=== PATIENT | female | born 1975 | race Caucasian/White ===

== ENCOUNTER → 2017-08-21 | Outpatient (CLI) | payer SELFPAY ==
--- NOTE | 2017-08-21 15:19 | Diagnostic Imaging Report ---
PROCEDURE: CT urinary tract, rule out kidney stone. TECHNIQUE: Multiple contiguous axial images were obtained through the abdomen and pelvis without the use of intravenous contrast. INDICATION: Right flank pain x2 weeks. Hematuria. History of kidney stones. COMPARISON: None. FINDINGS: Included portions of the lung bases are clear. CT ABDOMEN: No renal or ureteral calculi seen on either side. Additionally, there is no hydroureteronephrosis or other evidence of obstruction. There is 1.5 cm rounded hypodensity within the posterior lateral parenchyma of the mid region of the left kidney, which is incompletely characterized, but could conceivably be on the basis of hypodense cysts. The adrenal glands, spleen, pancreas, and liver have an unremarkable noncontrast CT appearance. Small bowel loops are nondistended. Normal appendix is identified. There is no loculated fluid collection, free fluid, free air within the abdomen. No abnormal adenopathy is seen. Bony structures show no acute abnormalities. CT PELVIS: Urinary bladder is unopacified. No calculi are seen within a bladder. There is no loculated fluid collection, free fluid, or free air within the pelvis. No abnormal lymph nodes are seen. Bony structures show no acute abnormalities. IMPRESSION: 1. No renal or ureteral calculi, hydroureteronephrosis, or other evidence of obstruction on either side. 2. Probable hypodense left renal cyst. 3. No other acute abnormalities are seen within the abdomen or pelvis. Dictated by: Dictated on workstation # [id number]
== END ==
LOC: RAD 14:50
PROVIDERS: ATTEND Nurse Practitioner Family
DX: R31.9 Hematuria, unspecified (principal); Z87.442 Personal history of urinary calculi
CPT/HCPCS: 74176

== ENCOUNTER → 2018-05-19 | Outpatient (CLI) | payer OTHER ==
--- NOTE | 2018-05-19 20:03 | Diagnostic Imaging Report ---
INDICATION: Bilateral breast pain. Correlation is made with prior mammogram from 12/24/2015. 2-D and 3-D bilateral diagnostic mammography was performed with a Computer Aided Detection (CAD) system. FINDINGS: Scattered fibroglandular densities are identified bilaterally. The parenchymal pattern is stable. No mass or malignant appearing microcalcifications are seen. Axillae are unremarkable. IMPRESSION: No mammographic features suspicious for malignancy are identified. Even so, sonographic interrogation of the areas of pain in bilateral breasts is recommended and will be performed today. ACR BI-RADS Category 0: Incomplete. (Needs additional imaging evaluation). Result letter will be mailed to the patient. Note: At least 10% of breast cancer is not imaged by mammography. Dictated by: Dictated on workstation # [id number]
--- NOTE | 2018-05-19 20:47 | Diagnostic Imaging Report ---
INDICATION: Bilateral breast pain. EXAMINATION: Sonographic interrogation of the areas of pain in bilateral breasts was performed. FINDINGS: Exam included the upper and lower inner outer quadrants of both breasts as well as the retroareolar regions. No sonographic abnormality is seen. No solid or cystic mass is detected. IMPRESSION: No sonographic abnormality is identified. Clinical followup is recommended. ACR BI-RADS Category 1: Negative. Result letter will be mailed to the patient. Note: At least 10% of breast cancer is not imaged by mammography. Dictated by: Dictated on workstation # [id number]
== END ==
LOC: RAD 12:53
PROVIDERS: ATTEND Nurse Practitioner Family
DX: N64.4 Mastodynia (principal)
CPT/HCPCS: 77066

== ENCOUNTER → 2018-05-19 | Outpatient (CLI) | payer OTHER ==
--- NOTE | 2018-05-19 14:49 | Diagnostic Imaging Report ---
PROCEDURE: US Abdomen, limited. TECHNIQUE: Multiple realtime grayscale images were obtained over the abdomen in various projections. INDICATION: Evaluate for umbilical hernia. FINDINGS: Sonographic interrogation in the periumbilical region was performed. No definite abdominal wall defect or hernia is identified. IMPRESSION: No sonographic abnormality is detected. Dictated by: Dictated on workstation # [id number]
== END ==
LOC: RAD 12:58
PROVIDERS: ATTEND Nurse Practitioner Family
DX: K42.9 Umbilical hernia without obstruction or gangrene (principal)
CPT/HCPCS: 76705

== ENCOUNTER → 2018-09-07 | Outpatient (CLI) | payer OTHER ==
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
== END ==
LOC: RAD 13:23
PROVIDERS: ATTEND Nurse Practitioner Community Health
DX: M50.122 Cervical disc disorder at C5-C6 level with radiculopathy (principal); M48.02 Spinal stenosis, cervical region; M65.842 Other synovitis and tenosynovitis, left hand; M67.432 Ganglion, left wrist
CPT/HCPCS: 72141; 73221